=== PATIENT | female | born 1960 | race Two or more races ===

== ENCOUNTER 2022-09-09 11:40 | Outpatient (CLI) | payer OTHER | END 2022-09-09 11:54 | disposition home or self-care (01) | LOC: MRI 11:40 | PROVIDERS: ATTEND Physical Medicine & Rehabilitation | DX: M54.9 Dorsalgia, unspecified (principal); M54.50 Low back pain, unspecified; M62.830 Muscle spasm of back; M54.16 Radiculopathy, lumbar region; M54.17 Radiculopathy, lumbosacral region | CPT/HCPCS: 72148 ==